=== PATIENT | male | born 1940 | race Caucasian/White ===

== ENCOUNTER 2023-07-21 11:40 | Emergency (ER) | payer MEDICARE, OTHER ==
[2023-07-21] MEDS ORDERED: diltiaZEM INJ 5 MG/ML VIAL IVP STA (11:53)
--- NOTE | 2023-07-21 11:55 | ED Physician Documentation ---
History of Present Illness - Stated complaint Stated Complaint: HIGH HEARTRATE - Additonal information Additional information: 82-year-old male presents to the emergency department via private vehicle for evaluation of elevated abnormal heart rate. He states that for weeks he has been monitoring his heart rate and has found that it has gone as high as 160. He is denying any chest pain but does have some shortness of air though not necessarily exertional. Patient describes himself as in not good shape. Past medical history most significant for arthritis and hypertension. Patient denies any previous history of known coronary artery disease or stroke. Meds: Lisinopril, amlodipine, Percocet Review of Systems Constitutional: denies: Fever, Chills Cardiac: reports: Palpitations. denies: Chest pain / pressure Respiratory: reports: Dyspnea. denies: Cough, Hemoptysis, Wheezing GI: reports: Reviewed and negative : reports: Reviewed and negative Skin: reports: Reviewed and negative PD PAST MEDICAL HISTORY - Past Medical History Cardiovascular: Hypertension Musculoskeletal: Osteoarthritis - Past Surgical History Past Surgical History: No - Present Medications Home Medications: Ambulatory Orders Medication Instructions Recorded Confirmed lisinopriL [Lisinopril] 10 mg PO DAILY 12/04/14 07/21/23 oxyCODONE/ACET 5/325 [Percocet 5 1 tab DAILY 12/04/14 07/21/23 mg/325 mg] Amlodipine Besylate [Norvasc] 10 mg PO DAILY 07/21/23 07/21/23 Apixaban [Eliquis] 2.5 mg PO BID #60 tablet 07/21/23 dilTIAZem HCL [Cardizem] 30 mg PO BID #60 tab 07/21/23 - Allergies Allergies/Adverse Reactions: Allergies Allergy/AdvReac Type Severity Reaction Status Date / Time No Known Drug Allergies Allergy Verified 07/21/23 11:59 - Social History Does the pt smoke?: Yes Smoking Status: Current every day smoker Does the pt drink ETOH?: No Does the pt have substance abuse?: No - Immunizations Immunizations are current?: Yes PD ED PE NORMAL - General General: Alert and oriented X 3, No acute distress, Well developed/nourished - HEENT HEENT: Atraumatic - Neck Neck: Supple, no meningeal sign - Cardiac Cardiac: No murmur, No gallop, Strong equal pulses, Other (No lower extremity edema). 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 Relevant findings are: Rate: Rate (enter#) (115) Rhythm: Atrial fibrillation [place]: Normal Intervals: No: Prolonged QT Ischemia: Normal ST segments, Q waves (inferior leads) Compare to prior EKG: Old EKG unavailable Computer interpretation: Agree with computer - Labs Labs: Laboratory Tests 07/21/23 07/21/23 07/21/23 12:02 12:02 12:02 WBC 9.0 RBC 4.94 Hgb 14.0 Hct 43.8 MCV 88.7 MCH 28.3 MCHC 32.0 RDW 14.5 Plt Count 237 MPV 10.0 Neut # (Auto) 6.4 Lymph # (Auto) 1.6 Mcdowell # (Auto) 0.8 Eos # (Auto) 0.1 Baso # (Auto) 0.1 Absolute Nucleated RBC 0.00 Nucleated RBC % 0.0 Sodium 137 Potassium 4.6 H Chloride 106 Carbon Dioxide 22 Anion Gap 9.0 BUN 27 H Creatinine 1.3 Estimated GFR (MDRD) 53 L Glucose 109 H Calcium 9.5 Total Bilirubin 0.3 AST 10 ALT 14 Alkaline Phosphatase 65 B-Natriuretic Peptide 164 H Total Protein 7.2 Albumin 4.1 Globulin 3.1 Albumin/Globulin Ratio 1.3 Lipase 21 - Rads (name of study) cxr Relevant Findings:: Final report received (no acute cardiopulmonary process) PD Medical Decision Making - ED course Complexity details: reviewed results, re-evaluated patient, d/w patient ED course: 82-year-old male with past medical history most significant for hypertension and arthritis presents emergency department for evaluation of several weeks intermittent elevated heart rate as high as 180. He has denied chest pain but does endorse some mild dyspnea. No history of similar in the past. He was speaking to his PCP this morning over a Zoom visit when she advised him to come to the ER. Presentation to the ER he was alert and well-appearing though somewhat anxious. Initial EKG showed A-fib with a variable rate of 1 15-1 40. Patient had a normal initial blood pressure of 113/92. He was administered 10 mg of Cardizem IV which successfully dropped his heart rate to the 90s but remained in fibrillation. Chest x-ray was without acute findings including pleural effusion cardiomegaly or findings of congestive heart failure. Patient was not hypoxic and cardiopulmonary auscultation was unremarkable sparing the irregular heart rate. No murmur was appreciated. CBC and electrolytes as well as a BNP were completed. Per my interpretation unremarkable CBC. His chemistry revealed a normal sodium potassium of 4.6. BUN was 27 and creatinine 1.3. His BNP was 164. During the time he has remained in the emergency department after the initial dose of Cardizem his heart rate has remained controlled in the 90s though it is atrial fib. His [id number] score is 3 putting him at moderate to high risk for stroke as such anticoagulation was indicated. I discussed with patient our clinical findings and recommended plan which would include Cardizem as an outpatient and Eliquis. Based on age he will be dosed at 2.5 mg twice daily. We discussed the risk factors for stroke and bleeding. He is going to follow very closely with his PCP. He should be referred for an outpatient echocardiogram to evaluate heart function and rule out structural defects. We discussed monitoring of the heart rate and blood pressure at home. The usual emergent return precautions were discussed for worsening symptoms. Departure - Departure Disposition: 01 Home, Self Care Clinical Impression: Atrial fibrillation Qualifiers: Atrial fibrillation type: unspecified Qualified Code(s): I48.91 - Unspecified atrial fibrillation Condition: Stable Instructions: Atrial Fibrillation Dc, Apixaban oral tablets Follow-Up: JORJE MCCABE MD [Primary Care Provider] - Prescriptions: dilTIAZem HCL [Cardizem] 30 mg PO BID #60 tab Apixaban [Eliquis] 2.5 mg PO BID #60 tablet Comments: Charan you have had an elevated and irregular heart rate for several weeks. You have developed a condition called atrial fibrillation. While here in the emergency department your chest x-ray showed no worrisome findings and your labs were otherwise without acute worrisome findings. Atrial fibrillation puts you at risk to have strokes as well as develop heart failure. The treatment recommendation is to begin a medication to help slow your heart rate. We are initiating you on a medication called Cardizem. You will take this twice daily. Because it can also lower your blood pressure I recommend that you monitor your blood pressures at home very closely for the next several days. If you find that your systolic blood pressure is lower than 110 I would recommend holding the amlodipine. Your other blood pressure medications may need to be adjusted if your blood pressure is dropping too much. If you find that you are excessively faint dizzy or weak you may need to return immediately to the ER. Because of the risk of stroke associated with atrial fibrillation, we are starting you on an anticoagulant medication called Eliquis. This is also known as apixaban. You will be taking this twice daily. With this medication if you have any serious falls, strike your head, have blood in your urine, black or bloody stools, or have any evidence of uncontrolled bleeding you need to return immediately to the ER. It is critical that you follow very closely with your primary care doctor. She should make a referral for you for an echocardiogram. You may also need to be referred to cardiology. Return immediately to the ER for any blunt trauma, sudden severe headache, uncontrolled bleeding, slurred speech, facial droop or sudden weakness in your arms or legs.
[2023-07-21 12:15] LABS: BASOPHILS # (AUTO) 0.1 10^3/uL (0.0-0.1); BASOPHILS % (AUTO) 0.6 %; EOSINOPHILS # (AUTO) 0.1 10^3/uL (0.0-0.7); EOSINOPHILS % (AUTO) 1.3 %; HCT - HEMATOCRIT 43.8 % (42.0-52.0); LYMPHOCYTES # (AUTO) 1.6 10^3/uL (1.5-3.5); LYMPHOCYTES % (AUTO) 18.1 %; MEAN CORPUSCULAR HEMOGLOBIN 28.3 pg (27.0-31.0); MEAN CORPUSCULAR VOLUME 88.7 fL (80.0-94.0); MONOCYTES # (AUTO) 0.8 10^3/uL (0.0-1.0); MONOCYTES % (AUTO) 8.4 %; NEUTROPHILS # (AUTO) 6.4 10^3/uL (1.5-6.6); NEUTROPHILS % (AUTO) 71.3 %; PLT - PLATELET COUNT 237 10^3/uL (130-450); RED BLOOD COUNT 4.94 10^6/uL (4.70-6.10); RED CELL DISTRIBUTION WIDTH 14.5 % (12.0-15.0)
--- NOTE | 2023-07-21 12:15 | XRAY Report ---
PROCEDURE: Chest 1 View X-Ray INDICATIONS: Chest Pain TECHNIQUE: One view of the chest was acquired. COMPARISON: None. FINDINGS: Surgical changes and devices: None. Lungs and pleura: No pleural effusions or pneumothorax. Lungs are clear. Mediastinum: Mediastinal contours appear normal. Heart size is prominent. Bones and chest wall: No suspicious bony lesions. Overlying soft tissues appear unremarkable. IMPRESSION: No acute pulmonary process. Reviewed by: Eun Munoz MD on 07/21/2023 12:14 PM [facility] Approved by: Eun Munoz MD on 07/21/2023 12:14 PM [facility] Station ID: [id number]
[2023-07-21 12:35] LABS: ALBUMIN 4.1 g/dL (3.2-5.5); ALBUMIN/GLOBULIN RATIO 1.3 (1.0-2.2); BILIRUBIN,TOTAL 0.3 mg/dL (0.2-1.0); CALCIUM 9.5 mg/dL (8.5-10.3); CREATININE 1.3 mg/dL (0.6-1.3); POTASSIUM 4.6 mmol/L (3.5-4.5); TOTAL PROTEIN 7.2 g/dL (6.4-8.9)
[2023-07-21 13:17] VITALS: BP 132/74
[2023-07-21] MEDS ORDERED: APIXABAN 5 MG TABLET PO STA (13:30)
[2023-07-21] MEDS ORDERED: diltiaZEM 30 MG TABLET PO STA (13:30)
[2023-07-21 13:36] VITALS: O2SAT 96
== END 2023-07-21 14:26 | disposition home or self-care (01) ==
LOC: ED 11:40
DX: I48.91 Unspecified atrial fibrillation (principal); I10 Essential (primary) hypertension; F17.200 Nicotine dependence, unspecified, uncomplicated; Z79.899 Other long term (current) drug therapy
CPT/HCPCS: 36415; 71045; 80053; 83690; 83880; 85025; 93005; 96374; 99284; A9270

== ENCOUNTER 2024-05-17 12:33 | Outpatient (CLI) | payer MEDICARE, OTHER ==
[2024-05-17 20:43] LABS: ALBUMIN 3.9 g/dL (3.2-5.5); ALBUMIN/GLOBULIN RATIO 1.1 (1.0-2.2); BILIRUBIN,TOTAL 0.4 mg/dL (0.2-1.0); CREATININE 1.1 mg/dL (0.6-1.3); POTASSIUM 4.5 mmol/L (3.5-4.5); TOTAL PROTEIN 7.5 g/dL (6.4-8.9)
== END 2024-05-17 12:34 | disposition home or self-care (01) ==
LOC: LAB.S 12:33
PROVIDERS: ATTEND Physician Assistant Medical
DX: R30.0 Dysuria (principal)
CPT/HCPCS: 36415; 80053